=== PATIENT | male | born 1970 | race Caucasian/White ===

== ENCOUNTER → 2017-01-01 | Outpatient (CLI) | payer BC ==
[~2017-01-01] MED LIST: B COMPLEX1 CA1 PO; B-100 COMPLEX1 TAB PO; FLEXERIL10 M1 PO; FOLIC ACID1 MG PO; HYDROCHLOROTHIA25 MG PO; IBUPROFEN800 MG PO; ISONIAZID300 MG PO; PRINIVIL40 MG PO; PROTONIX PO; THIAMINE HCL100 M1 PO; VITAMIN B-COMPL1 CA1 PO
--- NOTE | ~2017-01-01 | CR63 ---
[facility] A Service of [facility] & [facility] [place] RADIOLOGY TEXT RESULTS PATIENT: ELISE CARBAJAL LOCATION: [facility] : 66 UNIT #: [id number] AGE: [address]: Rhona Lan MD SEX: M ORDER DR: [id number] [facility] [address] [place], [place] [address] [id number] O MR#: [id number] Acc #: [id number] NAME: ELISE CARBAJAL : 1970 SEX: M STUDY DATE/TIME: 01/01/2017 10:16 UNIT: [facility] ROOM: STUDY DESCRIPTION: CR Chest 2 View Attending Physician: Rhona Lan M.D. Referring Physician: Rhona Lan M.D. Ordering Physician: Rhoan Lan M.D. Primary Care Physician: Rhona Lan M.D. MEDICAL IMAGING REPORT This report is preliminary unless electronic signature is present EXAM Chest, 2 views, 01/01/2017, 1016 hours. CLINICAL HISTORY 46-year-old man with shortness of air with activity today. 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 COMPARISON 01/01/2015 FINDINGS Upright PA and lateral views of the chest demonstrate normal cardiac, mediastinal and hilar contours. The lungs are well expanded and clear. There is no effusion. IMPRESSION The lungs are well expanded and clear. No acute cardiopulmonary findings. Dictated by... Mag Peterson M.D. THIS IS AN ELECTRONICALLY VERIFIED REPORT Mag Peterson M.D. at 01/01/2017 4:16 PM ENOC/cristina TD: 01/01/2017 14:29 JOB #: [id number] MEDICAL IMAGING REPORT Page 1 of 1 COPY
== END | disposition home or self-care (01) ==
LOC: CRAD 10:05
DX: Z51.81 Encounter for therapeutic drug level monitoring (principal); Z79.899 Other long term (current) drug therapy
CPT/HCPCS: 71020